=== PATIENT | female | born 1940 | race Caucasian/White ===

== ENCOUNTER 2022-02-15 13:41 | Inpatient (IN) | payer MEDICARE, OTHER ==
[~2022-02-15] VITALS: Ht 162.6 cm; Wt 61.7 kg
[2022-02-15 14:26] LABS: BASOPHILS % (AUTO) 0.5 % (0.0-2.0); EOSINOPHILS % (AUTO) 0.4 % (1.0-6.0); HEMATOCRIT 41.6 % (36-46); LYMPHOCYTES # (AUTO) 1.7 K/uL (1.0-4.8); LYMPHOCYTES % (AUTO) 17.5 % (22.0-44.0); MEAN CORPUSCULAR HEMOGLOBIN 29.3 pg (26.0-34.0); MEAN CORPUSCULAR HGB CONC 33.7 G/dL (31.0-37.0); MEAN CORPUSCULAR VOLUME 87 fL (80-100); MONOCYTES # (AUTO) 0.7 K/uL (0.1-1.0); NEUTROPHILS # (AUTO) 7.3 K/uL (1.8-7.7); NEUTROPHILS % (AUTO) 74.6 % (40.0-70.0); PLATELET COUNT (AUTO) 299 K/uL (150-450); RED BLOOD CELL COUNT(AUTO) 4.79 MIL/uL (4.00-5.20); RED CELL DISTRIBUTION WIDTH 15.2 % (11.5-14.5)
[2022-02-15 14:34] LABS: CALCIUM, TOTAL 9.3 mg/dL (8.8-10.5); CREATININE 1.01 mg/dL (0.60-1.30); POTASSIUM 3.9 mmol/L (3.5-5.1)
[2022-02-15 14:40] LABS: PROTHROMBIN TIME 10.3 SEC (9.4-11.6)
[2022-02-15 14:41] LABS: ALBUMIN 3.7 g/dL (3.4-5.0)
[2022-02-15 14:52] LABS: COVID AG,FIA SOURCE NASOPHARYNGEAL
[2022-02-15] MEDS ORDERED: IOHEXOL 350 MG/ML 75 ML VIAL ONE (15:01)
[2022-02-15] MEDS ORDERED: SODIUM CHLORIDE 0.9% 100 ML ONE (15:01)
[2022-02-15] MEDS ORDERED: ACETAMINOPHEN 325 MG TABLET PO PRN (17:00)
[2022-02-15] MEDS ORDERED: 0.9% SODIUM CHLORIDE 10 ML SYRINGE IVP PRN (17:00)
[2022-02-15] MEDS ORDERED: DEXTROSE 50%-WATER 25 GM/50 ML SYRINGE IVP PRN (17:00)
[2022-02-15] MEDS ORDERED: ONDANSETRON HCL 4 MG/2 ML VIAL IVP PRN (17:00)
[2022-02-15] MEDS ORDERED: APIX5TAB PO (18:01)
[2022-02-15] MEDS ORDERED: ACET-3385 PO (18:01)
[2022-02-15] MEDS ORDERED: OMEP20 PO (18:01)
[2022-02-15] MEDS ORDERED: BACL10TA PO (18:01)
[2022-02-15] MEDS ORDERED: LISI-894 PO (18:01)
[2022-02-15] MEDS ORDERED: GABA-1181 PO (18:01)
[2022-02-15] MEDS ORDERED: FAMO20 PO (18:01)
[2022-02-15] MEDS ORDERED: CHOL25TA4 PO (18:01)
[2022-02-15] MEDS ORDERED: ANAS1TAB50 PO (18:01)
[2022-02-15] MEDS ORDERED: ATORVASTATIN CALCIUM 20 MG TABLET PO SCH (21:00)
[2022-02-15 21:30] VITALS: BP 126/58
[2022-02-15] MEDS: DOCUSATE SODIUM 100 MG CAPSULE PO SCH (22:35)
[2022-02-15] MEDS: GABAPENTIN 300 MG CAPSULE PO SCH (22:36)
[2022-02-15] MEDS: APIXABAN 5 MG TABLET PO SCH (22:36)
[2022-02-15] MEDS: ACETAMINOPHEN 325 MG TABLET PO PRN (22:37)
[2022-02-15] MEDS: INSULIN LISPRO 100 UNITS/ML SQ PRN (22:38)
[2022-02-16 00:10] VITALS: BP 120/57
[2022-02-16 04:38] VITALS: BP 118/54
[2022-02-16 06:07] LABS: GLUCOMETER DEV NAME(LOC) 5S.2B; GLUCOSE,POINT OF CARE 138 MG/DL (70-110)
[2022-02-16 06:17] LABS: BASOPHILS % (AUTO) 0.7 % (0.0-2.0); EOSINOPHILS % (AUTO) 0.9 % (1.0-6.0); HEMATOCRIT 38.9 % (36-46); HEMOGLOBIN 13.2 g/dL (12.0-16.0); LYMPHOCYTES # (AUTO) 2.2 K/uL (1.0-4.8); LYMPHOCYTES % (AUTO) 32.2 % (22.0-44.0); MEAN CORPUSCULAR HEMOGLOBIN 29.5 pg (26.0-34.0); MEAN CORPUSCULAR HGB CONC 34.1 G/dL (31.0-37.0); MEAN CORPUSCULAR VOLUME 87 fL (80-100); MONOCYTES # (AUTO) 0.5 K/uL (0.1-1.0); MONOCYTES % (AUTO) 7.8 % (2.0-9.0); NEUTROPHILS % (AUTO) 58.4 % (40.0-70.0); PLATELET COUNT (AUTO) 263 K/uL (150-450); RED BLOOD CELL COUNT(AUTO) 4.48 MIL/uL (4.00-5.20); RED CELL DISTRIBUTION WIDTH 15.1 % (11.5-14.5)
[2022-02-16 07:11] LABS: ALANINE AMINOTRANSFERASE 11 U/L (12-78); ALBUMIN 3.1 g/dL (3.4-5.0); ALKALINE PHOSPHATASE 58 U/L (46-116); ANION GAP 8 mmol/L (8-16); ASPARTATE AMINOTRANSFERASE 13 U/L (15-37); BILIRUBIN,TOTAL 1.1 mg/dL (0.1-1.0); CALCIUM, TOTAL 9.2 mg/dL (8.8-10.5); CARBON DIOXIDE 26 mmol/L (22-29); CHLORIDE 107 mmol/L (98-107); GLUCOSE,RANDOM 119 mg/dL (70-110); SODIUM SERUM 141 mmol/L (136-145); UREA NITROGEN, BLOOD 18 mg/dL (7-18)
[2022-02-16 07:17] LABS: GLOMERULAR FILTR. RATE CALC > 60 mL/min (>60)
[2022-02-16 07:49] VITALS: BP 102/44
[2022-02-16] MEDS: DOCUSATE SODIUM 100 MG CAPSULE PO SCH (08:48)
[2022-02-16] MEDS: ACETAMINOPHEN 325 MG TABLET PO PRN ×2 (08:48→15:07)
[2022-02-16] MEDS: APIXABAN 5 MG TABLET PO SCH (08:48)
[2022-02-16] MEDS: GABAPENTIN 300 MG CAPSULE PO SCH (08:48)
[2022-02-16] MEDS ORDERED: AmLODIPine BESYLATE 5 MG TABLET PO SCH (09:00)
[2022-02-16] MEDS ORDERED: FAMOTIDINE 20 MG TABLET PO SCH (09:00)
[2022-02-16 11:24] VITALS: BP 108/53
[2022-02-16] MEDS: INSULIN LISPRO 100 UNITS/ML SQ PRN (11:31)
[2022-02-16 12:11] LABS: GLUCOMETER DEV NAME(LOC) 5S.2B; GLUCOSE,POINT OF CARE 154 MG/DL (70-110)
[2022-02-16 16:10] VITALS: BP 105/46
[2022-02-16 18:16] LABS: GLUCOMETER DEV NAME(LOC) 5N.3; GLUCOSE,POINT OF CARE 194 MG/DL (70-110)
== END 2022-02-16 17:10 | disposition home or self-care (01) | DRG 313 ==
LOC: EMS 13:41 → 5S 20:03
PROVIDERS: ADMIT Internal Medicine; ATTEND Internal Medicine
DX: R07.89 Other chest pain (principal); E11.9 Type 2 diabetes mellitus without complications; I10 Essential (primary) hypertension; J45.909 Unspecified asthma, uncomplicated; M19.90 Unspecified osteoarthritis, unspecified site; E78.00 Pure hypercholesterolemia, unspecified; Z20.822 Contact with and (suspected) exposure to COVID-19; E78.5 Hyperlipidemia, unspecified; Z79.899 Other long term (current) drug therapy; Z90.49 Acquired absence of other specified parts of digestive tract; Z90.12 Acquired absence of left breast and nipple; Z86.718 Personal history of other venous thrombosis and embolism; Z83.3 Family history of diabetes mellitus
CPT/HCPCS: 71045; 71275; 80053; 82550; 82962; 83690; 83880; 84484; 85025; 85610; 85730; 93005; 93306; 99285; G0378; J7050; Q9967; 36415-L1; 36415-TC

== ENCOUNTER 2022-04-08 12:58 | Emergency (ER) | payer MEDICARE, OTHER ==
[~2022-04-08] VITALS: Ht 152.4 cm; Wt 109.0 kg
[~2022-04-08 12:58] MED LIST: ACET-3385 PO; APIX5TAB PO; CHOL25TA4 PO; OMEP20 PO
[2022-04-08] MEDS ORDERED: GABA-1181 PO (14:08)
[2022-04-08] MEDS ORDERED: AZEL23SP2 NASAL (14:08)
[2022-04-08] MEDS ORDERED: BUDE180H IH (14:08)
[2022-04-08] MEDS ORDERED: CALC-1220 PO (14:08)
[2022-04-08] MEDS ORDERED: FLUT16H NASAL (14:08)
[2022-04-08] MEDS ORDERED: FAMO20 PO (14:08)
[2022-04-08] MEDS ORDERED: ATOR40TA28 PO (14:08)
[2022-04-08] MEDS ORDERED: CETI-450 PO (14:08)
[2022-04-08] MEDS ORDERED: ALBU8.5H8 IH (14:08)
[2022-04-08] MEDS ORDERED: METF-1211 PO (14:08)
[2022-04-08] MEDS ORDERED: MONT-35 PO (14:08)
[2022-04-08] MEDS ORDERED: DICL100G51 TP (14:08)
[2022-04-08] MEDS ORDERED: SERT-158 PO (14:08)
[2022-04-08] MEDS ORDERED: ALEN70TA65 PO (14:08)
[2022-04-08] MEDS ORDERED: KETO5DRO6 OD (14:08)
[2022-04-08] MEDS ORDERED: ESTR-108 TD (14:08)
[2022-04-08] MEDS ORDERED: METR45CR9 TP (14:08)
[2022-04-08] MEDS ORDERED: LISI-894 PO (14:08)
[2022-04-08] MEDS ORDERED: ANAS1TAB50 PO (14:11)
[2022-04-08 14:46] LABS: BASOPHILS % (AUTO) 0.3 % (0.0-2.0); EOSINOPHILS % (AUTO) 0.9 % (1.0-6.0); HEMATOCRIT 42.1 % (36-46); HEMOGLOBIN 14.1 g/dL (12.0-16.0); LYMPHOCYTES # (AUTO) 2.9 K/uL (1.0-4.8); MEAN CORPUSCULAR HEMOGLOBIN 29.2 pg (26.0-34.0); MEAN CORPUSCULAR HGB CONC 33.4 G/dL (31.0-37.0); MEAN CORPUSCULAR VOLUME 88 fL (80-100); MONOCYTES # (AUTO) 0.6 K/uL (0.1-1.0); NEUTROPHILS # (AUTO) 5.3 K/uL (1.8-7.7); NEUTROPHILS % (AUTO) 59.8 % (40.0-70.0); PLATELET COUNT (AUTO) 315 K/uL (150-450); RED BLOOD CELL COUNT(AUTO) 4.81 MIL/uL (4.00-5.20); RED CELL DISTRIBUTION WIDTH 14.9 % (11.5-14.5)
[2022-04-08 15:01] LABS: ANION GAP 9 mmol/L (8-16); CALCIUM, TOTAL 9.7 mg/dL (8.8-10.5); CARBON DIOXIDE 29 mmol/L (22-29); CHLORIDE 105 mmol/L (98-107); CREATININE 0.89 mg/dL (0.60-1.30); GLUCOSE,RANDOM 83 mg/dL (70-110); POTASSIUM 4.4 mmol/L (3.5-5.1); SODIUM SERUM 143 mmol/L (136-145); UREA NITROGEN, BLOOD 10 mg/dL (7-18)
[2022-04-08 15:02] LABS: GLOMERULAR FILTR. RATE CALC > 60 mL/min (>60)
[2022-04-08 15:09] LABS: ALANINE AMINOTRANSFERASE 15 U/L (12-78); ALBUMIN 3.7 g/dL (3.4-5.0); ALKALINE PHOSPHATASE 60 U/L (46-116); ASPARTATE AMINOTRANSFERASE 19 U/L (15-37); BILIRUBIN,TOTAL 0.9 mg/dL (0.1-1.0); LIPASE 44 U/L (73-393); PHOSPHORUS 3.9 mg/dL (2.5-4.9); TOTAL PROTEIN, SERUM 7.2 g/dL (6.4-8.2)
[2022-04-08] MEDS ORDERED: ESTR42.510 VG (17:14)
[2022-04-08] MEDS ORDERED: CALC-1271 PO (17:14)
[2022-04-08] MEDS ORDERED: CHOL25TA4 PO (17:14)
[2022-04-08] MEDS ORDERED: AZEL137S8 NASAL (17:14)
[2022-04-08] MEDS ORDERED: FAMOTIDINE 10 MG/ML 2 ML VIAL IVP ONE (17:15)
[2022-04-08] MEDS ORDERED: ACETAMINOPHEN 500 MG TABLET PO ONE (17:15)
[2022-04-08] MEDS ORDERED: KETOROLAC TROMETHAMINE 30 MG/ML VIAL IVP ONE (17:15)
[2022-04-08] MEDS ORDERED: MAG HYDROX/AL HYDROX/SIMETH 30 ML SUSP UDCUP PO ONE (17:15)
[2022-04-08] MEDS ORDERED: IOHEXOL 350 MG/ML 100 ML VIAL ONE (17:26)
[2022-04-08] MEDS ORDERED: SODIUM CHLORIDE 0.9% 100 ML ONE (17:26)
[2022-04-08] MEDS ORDERED: IOHEXOL 350 MG/ML 150 ML VIAL ONE (17:29)
[2022-04-08 17:50] LABS: APPEARANCE,URINE CLEAR (CLEAR); BILIRUBIN,URINE NEGATIVE (NEGATIVE); GLUCOSE, URINE (UA) NEGATIVE (NEGATIVE); KETONES,URINE TRACE mg/dL (NEGATIVE); LEUKOCYTE ESTERASE ,URINE NEGATIVE (NEGATIVE); NITRATE,URINE NEGATIVE (NEGATIVE); OCCULT BLOOD,URINE MODERATE (NEGATIVE); PH,URINE 5.5 (5.0-8.0); PROTEIN,URINE NEGATIVE (NEGATIVE); SPECIFIC GRAVITIY, URINE 1.017 (1.003-1.030); UROBILINOGEN,URINE <=1.0 mg/dL (<=1.0)
[2022-04-08 18:18] LABS: BACTERIA,URINE None Seen /HPF (None Seen); WBC,URINE None Seen /HPF (0-5)
[2022-04-08 19:27] VITALS: BP 146/74
[2022-04-08 19:32] LABS: COVID AG,FIA SOURCE NASAL SWAB
== END 2022-04-08 19:55 | disposition home or self-care (01) ==
LOC: EMS 12:58
DX: R10.33 Periumbilical pain (principal); R19.7 Diarrhea, unspecified; I10 Essential (primary) hypertension; E11.9 Type 2 diabetes mellitus without complications; E78.00 Pure hypercholesterolemia, unspecified; J45.909 Unspecified asthma, uncomplicated; Z79.899 Other long term (current) drug therapy; Z79.84 Long term (current) use of oral hypoglycemic drugs; Z20.822 Contact with and (suspected) exposure to COVID-19
CPT/HCPCS: 99285; 74177; 96374; 71045; 96375; 87426; 80053; 81001; 83690; 83735; 84100; 84484; 85025; 36415; 93005; J1885; Q9967; J7050